=== PATIENT | male | born 1980 | race Caucasian/White ===

== ENCOUNTER 2023-11-29 13:23 | Emergency (ER) | payer OTHER, SELFPAY ==
[2023-11-29 13:38] VITALS: BP 162/98
[2023-11-29 14:02] LABS: % Basophils 0.9 % (0-2); % Eosinophils 1.8 % (0-6); % Immature Granulocytes 0.5 % (0-0.5); % Lymphocytes 26.3 % (20.5-51.1); % Monocytes 8.5 % (1.7-9.3); Absolute Basophils 0.1 10^3/uL (0-0.2); Absolute Eosinophils 0.2 10^3/uL (0-0.7); Absolute Immature Granulocytes 0.1 10^3/uL (0-0.05); Absolute Lymphocytes 2.4 10^3/uL (1.2-3.4); Absolute Monocytes 0.8 10^3/uL (0.1-0.6); Absolute Neutrophils 5.7 10^3/uL (1.4-6.5); Hematocrit 44.7 % (39.0-52.0); Hemoglobin 15.5 g/dL (13.0-18.0); Mean Corp Hgb Conc. 34.7 g/dL (33.0-37.0); Mean Corpuscular Hgb 28.7 pg (27.0-31.0); Mean Corpuscular Volume 82.8 fL (80.0-94.0); Mean Platelet Volume 9.9 fL (7.4-10.4); Nucleated Red Blood Cells % 0 % (-); Platelet Count 289 10^3/uL (130-400); Red Cell Dist. Width 12.6 % (11.5-14.5); White Blood Cell Count 9.1 10^3/uL (4.8-10.8)
[2023-11-29 14:17] LABS: ALT (SGPT) 42 U/L (0-50); AST (SGOT) 37 U/L (17-59); Albumin 4.3 g/dl (3.5-5.0); Alkaline Phosphatase 61 U/L (38-126); Blood Urea Nitrogen 14 mg/dl (9-20); Calcium 9.7 mg/dl (8.4-10.2); Carbon Dioxide 28 mmol/L (22-30); Chloride 101 mmol/L (98-107); Glucose 103 mg/dl (70-99); Potassium 3.7 mmol/L (3.5-5.1); Sodium 140 mmol/L (135-145); Total Bilirubin 0.8 mg/dl (0.2-1.3); Total Protein 7.3 g/dl (6.3-8.2); eGFR > 60.00
[2023-11-29 14:22] LABS: Troponin I < 0.012 ng/ml
--- NOTE | 2023-11-29 16:40 | ED.GENMED ---
History of Present Illness
General
Chief Complaint: Chest Pain
Source: patient
Exam Limitations: none
Time Seen by Provider: 11/29/23 16:33
Nursing documentation reviewed up to this point in time: agreed with
Travel History
Have you had any contact with someone who has COVID-19?: No
Do you have any symptoms of coronavirus? Fever > 100 degrees, chills, cough, shortness of breath, sore throat, loss of taste or smell, muscle aches, or headache?: No
History of Present Illness
History of Present Illness:
43-year-old male with no significant past medical history states he has had 'real bad' palpitations the past 36 hours. Today at 8 AM he noted left upper chest shoulder and upper arm pressure like 'a 10 pound dumbbell' was on it. No recollection of
overuse or injury. Intermittently today he is felt 'a little dizzy and some slight shortness of breath.' He states that stretching the arm out relieves the pressure.
He has an appointment with rack cleaner Dr. Wright on 12/22.
He denies N/V/D/C, denies diaphoresis or abdominal pain.
He has taken nothing for the pain
Past History
Past History
ED Past Medical History: Other (Pneumonia in September 2017) and Other (Borderline hypertension)
ED Past Surgical History: Appendectomy and Other ([place] teeth)
Social History
Tobacco: Non-smoker
Alcohol: Occasional
Drug: None
Personal:
Living: with family
Employment: Employed
Family History
Family History: Early CAD (Father had SD in his 50s)
Review of Systems
Review of Systems
Allergies reviewed?: Yes
All Other Systems: ROS reviewed and negative except as documented in HPI and ROS
Respiratory: Denies trouble breathing
Cardiac: Reports chest pain and palpitations; Denies diaphoresis or syncope
ABD/GI: Denies abdominal pain or nausea
Musculoskeletal: Reports other (chest wall pain); Denies neck pain or back pain
Skin: Reports no symptoms
Neurological: Reports no symptoms
Phy Exam
Physical Exam
Physical Exam:
GENERAL: No acute distress. A&Ox3.
CONSTITUTIONAL: Afebrile.
EYES: PERRL, conjunctivae normal
Neck: Supple
ENMT: moist mucus membranes, Pharynx nl
RESPIRATORY: Regular respirations, nonlabored, lungs clear.
CARDIOVASCULAR: Regular rate and rhythm, no murmurs, no rubs.
GI: Soft, nontender, normal BS
MUSCULOSKELETAL: Moves with ease. Well perfused.
SKIN: Warm, dry, pink
PSYCH: Normal mood and affect. Well kept, interactive and appropriate
NEUROLOGIC: Awake, alert and oriented. No focal neurological deficits
Scores
Heart Score for Chest Pain Patients
STEMI patient?: No
History: Slightly or Non-Suspicious
ECG: Normal
Age: </= 45 years
Risk Factors: No Risk Factors
Troponin: </= Normal Limit
Heart Score for Chest Pain Patients: 0
Heart Score Risk: 2.5% MACE over next 6 weeks
Course
Orders/Labs/Results
Orders:
Orders
11/29/23 13:41
Electrocardiogram (*1) Urgent
Reason for Study: Chest Pain
EKG- Treatment ONCE
11/29/23 13:50
Complete Blood Count/With Diff Urgent
Comprehensive Metabolic Panel Urgent
Troponin I Urgent
11/29/23 17:08
Ibuprofen [Motrin] 600 mg PO NOW STA
Abnormal Lab Results
11/29/23
13:50
Abs Immat Gran (auto) 0.1 H 10^3/uL
(0-0.05)
Absolute Monos (auto) 0.8 H 10^3/uL
(0.1-0.6)
Glucose 103 H mg/dl
(70-99)
11/29/23 13:50
11/29/23 13:50
Vital Signs
Initial and Last Documented VS:
Initial Vital Signs
Temp Pulse Resp BP Pulse Ox
98.5 F 78 18 162/98 98
11/29/23 13:38 11/29/23 13:38 11/29/23 13:38 11/29/23 13:38 11/29/23 13:38
Last Documented Vital Signs
Temp Pulse Resp BP Pulse Ox
98.5 F 71 20 134/79 98
11/29/23 13:38 11/29/23 18:00 11/29/23 18:00 11/29/23 18:00 11/29/23 13:38
MDM/Problems Addressed
Differential Diagnosis Includes:
ACS, musculoskeletal pain, costochondritis
MDM/Problems Addressed:
43-year-old male with no significant past medical history states he has had 'real bad' palpitations the past 36 hours. Today at 8 AM he noted left upper chest shoulder and upper arm pressure like 'a 10 pound dumbbell' was on it. No recollection of
overuse or injury. Intermittently today he is felt 'a little dizzy and some slight shortness of breath.' He states that stretching the arm out relieves the pressure.
He has an appointment with rack cleaner Dr. Wright on 12/22.
He denies N/V/D/C, denies diaphoresis or abdominal pain.
No risk factors for PE
He has taken nothing for the pain
EKG NSR
11/29/2023 1642 PM
CBC normal
CMP normal
Troponin normal
Pain immediately reproducible with palpation of the left upper chest
No indication of cardiac etiology of pain, immediately point tender L upper chest wall/pectoral area with palpation.
Most likely musculoskeletal pain
Plan: Monitor for palpitations, if none, safe to discharge home.
He has a follow-up with his rack cleaner on December 22
*EKG
EKG Intrepretation Date: 11/29/23
Interpretation: normal
Rate: normal
Rhythm: sinus
[place]: normal axis
QRS Pattern: normal QRS
Ischemia: no ischemia
*Critical Care Note
Total Time (30-74mins, 75-104mins- exclusive of procedures): Not Applicable
ED Attending Note
-
Portions of this chart may have been created with voice recognition software.� Occasional wrong word or��sound alike� substitutions may have occurred due to the inherent limitations of voice recognition software.
Discharge Plan
Departure
Patient Disposition: Home (Routine Discharge)
Date of Disposition: 11/29/23
Time of Disposition: 17:39
Patient with high blood pressure during this ER visit?: No
Condition: Good
Discharge Problem:
Atypical chest pain
Instructions: Chest Pain That Is Not Caused by the Heart (DC), Costochondritis (DC)
Prescriptions:
No Action
acetaminophen 325 MG tablet
650 mg PO Q4HPRN PRN (Reason: mild pain/GHOTRA/temp> 100.4F) 0RF
ibuprofen 200 MG tablet
400 mg PO Q6HPRN PRN (Reason: fever) Qty: 1 0RF
ondansetron 4 MG tablet,disintegrating
4 mg PO TIDPRN PRN (Reason: nausea/vomiting) Qty: 14 0RF
acyclovir 800 MG tablet
800 mg PO QID 10 Days 0RF
methylprednisolone [Medrol (Dez)] 4 mg tablets,dose pack
4 mg PO DIRECTED Qty: 21 0RF
diazepam [Valium] 5 mg tablet
5 mg PO HS PRN (Reason: muscle spasm) Qty: 8 0RF
Referrals:
Marty Wright MD [Active] - Keep scheduled appt
Ramesh Zhao MD [Family Provider] -
Activity Restrictions/Additional Instructions:
As we discussed, nothing in your workup here today to indicate damage to your heart/heart attack.
Keep appointment with your rack cleaner as scheduled.
Return here immediately if pain worsens, is accompanied by dizziness, lightheadedness, sweating, nausea/vomiting or feeling sicker in any way.
Ibuprofen 600 mg (with food) every 6 hours as needed in case this is chest wall pain, to see if it helps
Interventions
Interventions:
*Risk Screen - Suicide Last Done: 11/29/23 13:40
*General Assessment Last Done: 11/29/23 13:40
*Neglect/Abuse Screening Last Done: 11/29/23 13:40
ED- Fall Risk Assessment Last Done: 11/29/23 16:50
*Nursing Disposition Last Done: 11/29/23 18:15
ED- Neurological Assessment Last Done: 11/29/23 16:50
ED- Cardiac Assessment Last Done: 11/29/23 16:50
ED Swallowing Screen Last Done: 11/29/23 17:30
Discharge Date and Time
Discharge Date/Time: 11/29/23 18:15
[2023-11-29 16:49] VITALS: BP 138/78
[2023-11-29] MEDS: MOTRIN 600 MG PO (17:36)
[2023-11-29 18:00] VITALS: BP 134/79
== END 2023-11-29 18:15 | disposition home or self-care (01) ==
LOC: EMR 13:23
PROVIDERS: Emergency Medicine; EMERGENCY PHYSICIAN Emergency Medicine; FAMILY PHYSICIAN Internal Medicine
DX: R07.89 Other chest pain (principal); R00.2 Palpitations; R42 Dizziness and giddiness; R06.02 Shortness of breath; Z87.01 Personal history of pneumonia (recurrent); Z82.49 Family history of ischemic heart disease and other diseases of the circulatory system
CPT/HCPCS: 99283; 80053; 84484; 85025; 93005

== ENCOUNTER → 2024-01-06 15:48 | Outpatient (REF) | payer SELFPAY | LOC: RAD 15:48 | PROVIDERS: ATTENDING PHYSICIAN Internal Medicine Cardiovascular Disease; FAMILY PHYSICIAN Internal Medicine | DX: R07.89 Other chest pain (principal) | CPT/HCPCS: 75571 ==